=== PATIENT | female | born 1990 | race Two or more races ===

== ENCOUNTER 2022-11-10 23:49 | Inpatient (IN) | payer OTHER ==
[~2022-11-10] VITALS: Ht 157.5 cm; Wt 68.9 kg
--- NOTE | 2022-11-10 23:55 | NUR ---
ALINA FROM HOME FOR EPIGASTRIC PAIN AND N/V UNABLE TO TOLERATE ANY PO SINCE THIS AM. SEEING GI SPECIALIST CURRENTLY. ALSO ADDS SHE HAS HAD MANY GI ISSUES SINCE OF FIRST BABY IN JUNE OF THIS YEAR. PLACED COMFORTABLY IN BED, VITALS CHECKED.
[2022-11-11] MEDS ORDERED: ONDANSETRON HCL/PF 4 MG/2 ML VIAL IVP ONE
--- NOTE | 2022-11-11 00:03 | NUR ---
EKG DONE AT BEDSIDE
--- NOTE | 2022-11-11 00:07 | NUR ---
EKG COMPLETED AT BEDSIDE
--- NOTE | 2022-11-11 00:15 | NUR ---
20GA TO LEFT AC ESTABLISHED, BLOOD WORK COLLECTED, SENT TO LAB
[2022-11-11] MEDS ORDERED: ONDANSETRON HCL/PF 4 MG/2 ML VIAL ONE (00:20)
[2022-11-11 00:43] LABS: BASOPHILS # (AUTO) 0.1 K/uL (0.0-0.2); BASOPHILS % (AUTO) 0.5 % (0.0-2.0); EOSINOPHILS % (AUTO) 0.4 % (0.0-6.0); HEMATOCRIT 41 % (33-45); HEMOGLOBIN 13.5 g/dL (11.5-14.8); LYMPHOCYTES # (AUTO) 1.9 K/uL (0.8-4.8); LYMPHOCYTES % (AUTO) 11.1 % (20.0-44.0); MEAN CORPUSCULAR HGB CONC 33 g/dl (31.0-36.0); MEAN CORPUSCULAR VOLUME 81 fL (82-100); MONOCYTES # (AUTO) 0.8 K/uL (0.1-1.30); MONOCYTES % (AUTO) 4.5 % (2.0-12.0); NEUTROPHILS # (AUTO) 14.5 K/uL (1.8-8.9); NEUTROPHILS % (AUTO) 83.5 % (43.0-81.0); PLATELET COUNT (AUTO) 326 K/uL (150-450); RED BLOOD CELL COUNT(AUTO) 5.03 MIL/uL (4.0-5.2); WHITE BLOOD COUNT (AUTO) 17.4 K/uL (4.3-11.0)
[2022-11-11] MEDS ORDERED: PROCHLORPERAZINE EDISYLATE 10 MG/2 ML VIAL ONE (01:20)
--- NOTE | 2022-11-11 01:20 | NUR ---
U/S TECH AT BEDSIDE
[2022-11-11 01:28] LABS: ALBUMIN 4.2 g/dL (3.4-5.0); BILIRUBIN,DIRECT 0.9 mg/dL (0.0-0.2); BILIRUBIN,TOTAL 2.2 mg/dL (0.2-1.0); CALCIUM, SERUM 9.8 mg/dL (8.5-10.1); POTASSIUM 3.4 mmol/L (3.5-5.1)
[2022-11-11] MEDS ORDERED: PROCHLORPERAZINE EDISYLATE 10 MG/2 ML VIAL IVP ONE (01:30)
--- NOTE | 2022-11-11 01:50 | NUR ---
U/S COMPLETED AT BEDSIDE
[2022-11-11] MEDS ORDERED: LORAZEPAM INJ 2 MG/ML VIAL ONE (02:45)
[2022-11-11] MEDS ORDERED: CIPROFLOXACIN IV RTU 400 MG in PREMIX 1 EA IV SCH (03:00)
[2022-11-11] MEDS ORDERED: IV NS 0.9% 1,000 ML IV PRN (03:00)
[2022-11-11] MEDS ORDERED: LORAZEPAM INJ 2 MG/ML VIAL IV ONE (03:00)
[2022-11-11] MEDS ORDERED: FLAGYL/NS RTU 500 MG/100 ML PIGGYBACK IV ONE (03:00)
[2022-11-11] MEDS ORDERED: METRONIDAZOLE 500MG/ NS 100ML 100 ML IV ONE (03:07)
[2022-11-11] MEDS ORDERED: CIPROFLOXACIN IV RTU 200 ML IV ONE (04:13)
--- NOTE | 2022-11-11 04:15 | NUR ---
DR. PENNINGTON ON THE PHONE W/ DR. CIFUENTES FROM [facility]
--- NOTE | 2022-11-11 04:35 | NUR ---
FAXED COVID RESULTS DEY[facility] NOT TO [facility] AT [phone]
--- NOTE | 2022-11-11 05:18 | NUR ---
SPOKE TO DAYANNA PHILLIPS CM, FAXED OVER [employer] FOR TRANSFER NOTE AT HER REQUEST. PT HAS RECEIVED A BED AT [facility], THEY WILL CALL BACK AFTER NOTE IS RECEIVED TO GIVE MORE ACCEPTANCE INFORMATION.
--- NOTE | 2022-11-11 08:34 | NUR ---
CALLED [facility] WEALTH MANAGEMENT DIRECTOR,HILARY ALAN, WILL CALL BACK 30-60 MINS FOR UPDATE. [phone]
[2022-11-11] MEDS ORDERED: OMEP40CA21 PO (12:11)
--- NOTE | 2022-11-11 12:30 | NUR ---
BED GIVEN 306-1
--- NOTE | 2022-11-11 12:39 | NUR ---
REPORT GIVEN TO DANIEL FOR KHARI
--- NOTE | 2022-11-11 12:54 | NUR ---
PT TAKEN TO MED SURG FLOOR IN STABLE CONDITION.
--- NOTE | 2022-11-11 13:00 | NUR ---
CONSERVATION AGENT NOTE: RECEIVED PT VIA GURNEY FROM ER. PT IS AAOX4. ABLE TO MAKE NEEDS KNOWN. ON RA. O2 SAT 99%NO SOB, NO S/S DISTRESS NOTED. PT ORIENTED TO ROOM AND HOW TO USE CALL LIGHT . IV ACCESS CAT AC. PATENT AND INTACT. FLUSHING WELL. ALL BELONGINGS ACCOUNTED. LUNGS CLEAR UPON AUSCULTATION.BOWEL SOUNDS PRESENT X4 QUADRANTS.SKIN ASSESMENT DONE. WITH NO SKIN BREAKDOWN.VITAL SIGNS RA 99%, BP 105/72, P87, R16,T 97.9, PA 0/10.BED IN LOW AND LOCK POSITION S/R UP X 2, CALL LIGHT WITHIN REACH.
[2022-11-11 13:26] VITALS: BP 105/72
--- NOTE | 2022-11-11 13:30 | NUR ---
MS RN NOTE: DR LUCIANO AT BEDSIDE.
[2022-11-11] MEDS ORDERED: MORPHINE SULFATE INJ 2 MG/ML DISP.SYRIN IV PRN (14:00)
[2022-11-11] MEDS ORDERED: POTASSIUM CHLORIDE 20 MEQ TAB.PRT.SR PO ONE (14:00)
[2022-11-11] MEDS ORDERED: ACETAMINOPHEN 325 MG TABLET PO PRN (14:00)
[2022-11-11] MEDS ORDERED: HYDROCODONE/APAP 5/325MG TABLET PO PRN (14:00)
[2022-11-11] MEDS: PANTOPRAZOLE 40 MG VIAL IV SCH ×2 (14:22→18:16)
[2022-11-11] MEDS: ONDANSETRON HCL/PF 4 MG/2 ML VIAL IV PRN ×2 (14:36→22:09)
[2022-11-11 16:00] VITALS: BP 99/59
--- NOTE | 2022-11-11 18:00 | NUR ---
RN NOTE: DR. SCHAFER AT BEDSIDE
[2022-11-11] MEDS: PIPERACILLIN /TAZOBACTAM 3.375 G in IV D5W 50 ML IV SCH (18:16)
--- NOTE | 2022-11-11 18:25 | NUR ---
RN CLOSING NOTE: PT AAOX3, BF AT BEDSIDE MICHAEL. PT DENIES PAIN OR DISCOMFORT. NO SOB, CALL LIGHT WITHIN REACH. NEEDS ANSWERED PROMPTLY. ASSISTED TO BR NEEDED. BM X2 SMALL, VOIDED X2. CALM AND STABLE AT THIS TIME.
--- NOTE | 2022-11-11 18:28 | NUR ---
MOTHER JANESSA [phone]
[2022-11-11 20:00] VITALS: BP 97/67
--- NOTE | 2022-11-11 20:40 | NUR ---
ANXIETY Patient wanted to sleep, request medication for ANXIETY. Education given to patient, ANXIETY medication and RESTORIL indication and possible side effect, patient verbalized understanding. Patient requesting medication she received last night- Ativan. Notified Dr. Mccauley with new order- Xanax 0.5mg q6h PRN.
[2022-11-11] MEDS ORDERED: ALPRAZOLAM 0.25 MG TABLET PO PRN (21:00)
[2022-11-12] MEDS: PIPERACILLIN /TAZOBACTAM 3.375 G in IV D5W 50 ML IV SCH ×5 (00:43→23:52)
[2022-11-12] MEDS: TEMAZEPAM 7.5 MG CAPSULE PO PRN ×2 (00:51→21:48)
[2022-11-12 05:56] LABS: BASOPHILS # (AUTO) 0.1 K/uL (0.0-0.2); BASOPHILS % (AUTO) 1.1 % (0.0-2.0); EOSINOPHILS % (AUTO) 2.3 % (0.0-6.0); HEMATOCRIT 35 % (33-45); HEMOGLOBIN 12.1 g/dL (11.5-14.8); LYMPHOCYTES # (AUTO) 2.8 K/uL (0.8-4.8); LYMPHOCYTES % (AUTO) 42.3 % (20.0-44.0); MEAN CORPUSCULAR HGB CONC 34 g/dl (31.0-36.0); MEAN CORPUSCULAR VOLUME 81 fL (82-100); MONOCYTES # (AUTO) 0.4 K/uL (0.1-1.30); MONOCYTES % (AUTO) 5.9 % (2.0-12.0); NEUTROPHILS # (AUTO) 3.2 K/uL (1.8-8.9); NEUTROPHILS % (AUTO) 48.4 % (43.0-81.0); PLATELET COUNT (AUTO) 232 K/uL (150-450); RED BLOOD CELL COUNT(AUTO) 4.36 MIL/uL (4.0-5.2); WHITE BLOOD COUNT (AUTO) 6.6 K/uL (4.3-11.0)
[2022-11-12 06:32] LABS: ALBUMIN 3.4 g/dL (3.4-5.0); BILIRUBIN,TOTAL 1.8 mg/dL (0.2-1.0); CREATININE 0.9 mg/dL (0.6-1.3); MAGNESIUM 2.2 mg/dL (1.8-2.4); POTASSIUM 3.9 mmol/L (3.5-5.1); TOTAL PROTEIN, SERUM 6.7 g/dL (6.4-8.2)
[2022-11-12 06:43] LABS: THYROID STIMULATING HORMONE 1.221 uIU/mL (0.358-3.74)
--- NOTE | 2022-11-12 07:25 | NUR ---
END OF SHIFT REPORT Patient in bed, Alert Oriented x4. Oxygen sat high 90's in RA. IV peripheral line left AC intact, on IV abx with no adverse side effect. Patient on Clear liquids diet. Afebrile during the night. Nausea improved with IV Zofran, no emesis. Denies abd pain. Plan for MRCP wo contrast. Patient consented procedure. MRI questionnaire checklist completed. Endorsed care to JUNIOR Thomas.
--- NOTE | 2022-11-12 07:29 | NUR ---
MS RN OPENING NOTE Received pt in bed, awake. A/O x 4, able to make needs known. No c/o pain/discomfort at this time. On room air, tolerating well. IV access in the LAC #20g, sl. Safety measures in place: bed in lowest locked position, side rails up x 2, call light and tray table within easy reach. Will continue to monitor.
[2022-11-12 08:35] VITALS: BP 91/63
[2022-11-12] MEDS: PANTOPRAZOLE 40 MG VIAL IV SCH (08:47)
--- NOTE | 2022-11-12 15:00 | NUR ---
RN NOTE Consent for surgery signed by patient. Instructed patient not to eat and drink after midnight.
[2022-11-12 15:40] VITALS: BP 94/56
--- NOTE | 2022-11-12 18:49 | NUR ---
MS RN CLOSING NOTE Patient resting in bed, with relative at bedside. A/O x 4, able to make needs known. No c/o pain/discomfort at this time. On room air, tolerating well. IV access in the LAC #20g, sl. Safety measures in place: bed in lowest locked position, side rails up x 2, call light and tray table within easy reach. Will endorse mariel to weight shifter.
--- NOTE | 2022-11-12 19:05 | NUR ---
MS RN OPENING NOTE PATIENT IS RESTING IN BED, ALERT AND ORIENTED, AO X 4. SHE IS ON RA, TOLERATED WELL. NO S/S OF DISTRESS OR SOB. PT DENIES OF HAVING PAIN AT THIS MOMENT. IV ACCESS IS AT HER L AC, #20G, SL. FLUSHED WELL WITH NS. IV SITE IS PATENT AND INTACT. SAFETY MEASURES ARE IN PLACED: BED IN LOWEST AND LOCKED POSITION; SIDE RAILS UP X 2; CALL LIGHT AND TABLE ARE WITHIN REACH. WILL CONTINUE MONITORING THE PT AND PROVIDE THE CARE PT NEEDS.
--- NOTE | 2022-11-12 19:39 | NUR ---
MS RN NOTE PT STATED THAT SHE WAS HAVING HEADACHE AND NEEDED MEDICATIONS FOR IT. PRN PO MEDICATION, TYLENOL 650 ML, ADMINISTERED PER MD ORDER.
[2022-11-12 20:00] VITALS: BP 101/64
[2022-11-12] MEDS: ONDANSETRON HCL/PF 4 MG/2 ML VIAL IV PRN (21:48)
--- NOTE | 2022-11-12 21:49 | NUR ---
MS RN NOTE PT REQUESTED FOR SLEEPING PILL. PRN PO MEDICATION, TEMAZEPAM 7.5MG, ADMINISTERED TO THE PT PER MD ORDER.
--- NOTE | 2022-11-12 21:50 | NUR ---
MS RN NOTE PT STATED SHE WAS HAVING NAUSEA. PRN IV MEDICATION, ZOFRAN, ADMINISTERED TO THE PT PER MD ORDER.
[2022-11-13] MEDS: PIPERACILLIN /TAZOBACTAM 3.375 G in IV D5W 50 ML IV SCH ×3 (05:01→18:26)
[2022-11-13 06:18] LABS: BASOPHILS # (AUTO) 0.1 K/uL (0.0-0.2); EOSINOPHILS % (AUTO) 2.3 % (0.0-6.0); HEMATOCRIT 38 % (33-45); HEMOGLOBIN 12.9 g/dL (11.5-14.8); LYMPHOCYTES # (AUTO) 2.5 K/uL (0.8-4.8); LYMPHOCYTES % (AUTO) 34.9 % (20.0-44.0); MEAN CORPUSCULAR HGB CONC 34 g/dl (31.0-36.0); MEAN CORPUSCULAR VOLUME 82 fL (82-100); MONOCYTES # (AUTO) 0.4 K/uL (0.1-1.30); MONOCYTES % (AUTO) 5.7 % (2.0-12.0); NEUTROPHILS % (AUTO) 56.1 % (43.0-81.0); PLATELET COUNT (AUTO) 255 K/uL (150-450); RED BLOOD CELL COUNT(AUTO) 4.67 MIL/uL (4.0-5.2); WHITE BLOOD COUNT (AUTO) 7.1 K/uL (4.3-11.0)
[2022-11-13 06:43] LABS: ALBUMIN 3.6 g/dL (3.4-5.0); BILIRUBIN,TOTAL 1.5 mg/dL (0.2-1.0); CALCIUM, SERUM 9.1 mg/dL (8.5-10.1); CREATININE 0.9 mg/dL (0.6-1.3); POTASSIUM 3.6 mmol/L (3.5-5.1); TOTAL PROTEIN, SERUM 6.9 g/dL (6.4-8.2)
--- NOTE | 2022-11-13 06:50 | NUR ---
MS RN CLOSING NOTE PATIENT IS RESTING IN BED, ALERT AND ORIENTED, AO X 4. SHE IS ON RA, TOLERATED WELL. NO S/S OF DISTRESS OR SOB. PT DENIES OF HAVING PAIN AT THIS MOMENT. IV ACCESS IS AT HER L AC, #20G, SL. FLUSHED WELL WITH NS. IV SITE IS PATENT AND INTACT. SAFETY MEASURES ARE IN PLACED: BED IN LOWEST AND LOCKED POSITION; SIDE RAILS UP X 2; CALL LIGHT AND TABLE ARE WITHIN REACH. WILL ENDORSE NEXT SHIFT NURSE FOR CONTINUING PT CARE.
--- NOTE | 2022-11-13 07:11 | NUR ---
MS RN NOTE PT IS PICKING UP BY OR.
[2022-11-13] MEDS ORDERED: FENTANYL PF 100MCG/2ML AMPUL ONE (07:13)
[2022-11-13] MEDS ORDERED: MIDAZOLAM HCL 2 MG/2ML VIAL ONE (07:13)
[2022-11-13] MEDS ORDERED: BUPIVACAINE 0.5 % PF 150 MG/30 ML VIAL ONE (07:24)
[2022-11-13] MEDS ORDERED: LIDOCAINE 1% INJ 50 ML MDV IJ ONE (07:25)
[2022-11-13] MEDS ORDERED: LIDOCAINE 1%-EPI 1:100,000 20 ML VIAL ONE (07:25)
--- NOTE | 2022-11-13 07:30 | NUR ---
RN OPENING NOTES PATIENT IS AT SURGERY AT THIS TIME
[2022-11-13] MEDS ORDERED: BACITRACIN ZINC OINT PACKET 1 EA PACKET TP ONE (08:47)
[2022-11-13] MEDS: PANTOPRAZOLE 40 MG/PACK PACK PO SCH (09:00)
[2022-11-13] MEDS ORDERED: PANTOPRAZOLE 40 MG VIAL IV SCH (09:00)
[2022-11-13] MEDS ORDERED: HYDROMORPHONE 1 MG/1 ML DISP.SYRIN ONE ×2 (09:06→09:18)
[2022-11-13] MEDS ORDERED: ONDANSETRON HCL/PF 4 MG/2 ML VIAL ONE (09:11)
--- NOTE | 2022-11-13 10:00 | NUR ---
RN NOTES RECEIVED PATIENT FROM SURGERY S/P LAPAROSCOPIC CHOLECESTECTOMY , AWAKE AND VERBALLY RESPONSIVE , V/S TAKEN AND RECORDED . BP 110/74 , P 76 , RR 20 T 98.2, O2 SAT 98% ROOM AIR , NO SOB OR DISTRESS NOTED AND KEPT COMFORTABLE TO BED , SURGICAL SITE NO BLEEDING NOTED AND PATIENT WILL HAVE ICE CHIPS AND TO ADVANCE TOLERATED , WILL CONTINUE TO MONITOR
[2022-11-13] MEDS: CELECOXIB 100 MG CAPSULE PO SCH ×2 (11:09→22:41)
[2022-11-13] MEDS: ACETAMINOPHEN 325 MG TABLET PO SCH ×2 (11:10→19:43)
[2022-11-13] MEDS: GABAPENTIN 100 MG CAPSULE PO SCH ×2 (11:10→19:43)
[2022-11-13] MEDS: ONDANSETRON HCL/PF 4 MG/2 ML VIAL IV PRN ×2 (11:10→16:51)
[2022-11-13 12:00] VITALS: BP 110/74
[2022-11-13 16:00] VITALS: BP 122/83
--- NOTE | 2022-11-13 18:50 | NUR ---
RN CLOSING NOTES PATIENT ON BED AWAKE S/P LAPAROSCOPIC CHOLECESTECTOMY , AWAKE AND VERBALLY RESPONSIVE , V/S TAKEN AND RECORDED . BP 110/74 , P 76 , RR 20 T 98.2, O2 SAT 98% ROOM AIR , NO SOB OR DISTRESS NOTED AND KEPT COMFORTABLE TO BED , SURGICAL SITE NO BLEEDING NOTED AND , NOW ABLE TO TOLERATE CLEAR LIQUID WITH NO ASPIRATIONS NOTED , ALL DUE MEDS GIVEN ORDERED , C/O OF PAIN AND DISCOMFORT AND PATIENT GIVEN PAIN MEDS ORDERED , NAUSEA NOTED AND ZOFRAN GIVEN ORDERED AND WITH HELP . IV ACCESS ON LAC WITH 20 G RUNNING WITH LR @ 100 CC /HR , ENDORSED TO NEXT SHIFT
[2022-11-13] MEDS: IV LR 1000 ML 1,000 ML IV PRN (19:10)
--- NOTE | 2022-11-13 19:10 | NUR ---
MS RN OPENING NOTE PATIENT IS RESTING IN BED, ALERT AND ORIENTED, AO X 4. SHE IS ON RA, TOLERATED WELL. NO S/S OF DISTRESS OR SOB. PT DENIES OF HAVING PAIN AT THIS MOMENT. IV ACCESS IS AT HER L AC, #20G, INFUSING LR @ 100 ML / HR. IV SITE IS PATENT AND INTACT. SAFETY MEASURES ARE IN PLACED: BED IN LOWEST AND LOCKED POSITION; SIDE RAILS UP X 2; CALL LIGHT AND TABLE ARE WITHIN REACH. WILL CONTINUE MONITORING THE PT AND PROVIDE THE CARE PT NEEDS.
[2022-11-13 20:00] VITALS: BP 108/72
[2022-11-13] MEDS: TEMAZEPAM 7.5 MG CAPSULE PO PRN (22:41)
--- NOTE | 2022-11-13 22:42 | NUR ---
MS RN NOTE PT STATED THAT SHE NEEDED SLEEPING PILL FOR HER INSOMNIA. PRN MEDICATION, TEMAZEPAM, ADMINISTERED PER MD ORDER.
[2022-11-14] MEDS: PIPERACILLIN /TAZOBACTAM 3.375 G in IV D5W 50 ML IV SCH ×3 (00:01→12:00)
[2022-11-14] MEDS: GABAPENTIN 100 MG CAPSULE PO SCH ×2 (03:40→12:47)
[2022-11-14] MEDS: ACETAMINOPHEN 325 MG TABLET PO SCH ×2 (03:40→12:48)
[2022-11-14] MEDS: IV LR 1000 ML 1,000 ML IV PRN (05:27)
[2022-11-14 06:57] LABS: BASOPHILS # (AUTO) 0.1 K/uL (0.0-0.2); BASOPHILS % (AUTO) 0.6 % (0.0-2.0); HEMATOCRIT 36 % (33-45); HEMOGLOBIN 12.3 g/dL (11.5-14.8); LYMPHOCYTES # (AUTO) 2.5 K/uL (0.8-4.8); LYMPHOCYTES % (AUTO) 26.6 % (20.0-44.0); MEAN CORPUSCULAR HGB CONC 34 g/dl (31.0-36.0); MEAN CORPUSCULAR VOLUME 82 fL (82-100); MONOCYTES # (AUTO) 0.6 K/uL (0.1-1.30); MONOCYTES % (AUTO) 6.1 % (2.0-12.0); NEUTROPHILS # (AUTO) 6.1 K/uL (1.8-8.9); NEUTROPHILS % (AUTO) 65.7 % (43.0-81.0); PLATELET COUNT (AUTO) 242 K/uL (150-450); RED BLOOD CELL COUNT(AUTO) 4.46 MIL/uL (4.0-5.2); WHITE BLOOD COUNT (AUTO) 9.3 K/uL (4.3-11.0)
[2022-11-14 07:00] VITALS: BP 102/65
--- NOTE | 2022-11-14 07:15 | NUR ---
MS RN CLOSING NOTE PATIENT IS RESTING IN BED, ALERT AND ORIENTED, AO X 4. SHE IS ON RA, TOLERATED WELL. NO S/S OF DISTRESS OR SOB. PT DENIES OF HAVING PAIN AT THIS MOMENT. IV ACCESS IS AT HER L AC, #20G, INFUSING LR @100 ML / HR. IV SITE IS PATENT AND INTACT. SAFETY MEASURES ARE IN PLACED: BED IN LOWEST AND LOCKED POSITION; SIDE RAILS UP X 2; CALL LIGHT AND TABLE ARE WITHIN REACH. WILL ENDORSE NEXT SHIFT NURSE FOR CONTINUING PT CARE.
[2022-11-14 07:22] LABS: ALBUMIN 3.2 g/dL (3.4-5.0); CALCIUM, SERUM 9.1 mg/dL (8.5-10.1); CREATININE 0.8 mg/dL (0.6-1.3); MAGNESIUM 2.2 mg/dL (1.8-2.4); PHOSPHORUS 3.9 mg/dL (2.5-4.9); POTASSIUM 3.7 mmol/L (3.5-5.1); TOTAL PROTEIN, SERUM 6.4 g/dL (6.4-8.2)
--- NOTE | 2022-11-14 07:50 | NUR ---
MS RN OPENING NOTE PATIENT IS RESTING IN BED, ALERT AND ORIENTED, AO X 4. SHE IS ON RA, TOLERATED WELL. NO S/S OF DISTRESS OR SOB. PT DENIES OF HAVING PAIN AT THIS MOMENT. IV ACCESS IS AT HER L AC, #20G, SL. FLUSHED WELL WITH NS. IV SITE IS PATENT AND INTACT. SAFETY MEASURES ARE IN PLACED: BED IN LOWEST AND LOCKED POSITION; SIDE RAILS UP X 2; CALL LIGHT AND TABLE ARE WITHIN REACH. WILL CONTINUE MONITOR AND CARE FOR THE PT PER MD 'S POC.
[2022-11-14] MEDS ORDERED: ACET-907 PO (08:47)
[2022-11-14] MEDS ORDERED: ONDA4TAB5 PO (08:47)
[2022-11-14] MEDS ORDERED: AMOX-427 PO (08:47)
[2022-11-14] MEDS ORDERED: MECL-182 PO (08:47)
[2022-11-14] MEDS: MECLIZINE HCL 25 MG TABLET PO SCH ×2 (09:32→13:49)
[2022-11-14] MEDS: PANTOPRAZOLE 40 MG/PACK PACK PO SCH (09:32)
[2022-11-14] MEDS: CELECOXIB 100 MG CAPSULE PO SCH (12:47)
--- NOTE | 2022-11-14 14:43 | NUR ---
MS OCEAN FISHING GUIDE TO HOME NOTE (DAY SHIFT) Patient tolerated the removal of the # 20 gauge PIV catheter fully intact from her left arm antecubital space without any signs of complications of IV therapy. Patient demonstrated understanding of her home care discharge instructions using the teach back method in her own words. Patient departed the [address], walking with steady gait to private car with her boy friend, Babak, at 14:40 hours, bound for her home.
[2022-11-14] MEDS ORDERED: PIPERACILLIN /TAZOBACTAM 3.375 G in IV D5W 100 ML IV SCH (21:00)
== END 2022-11-14 14:40 | disposition home or self-care (01) | DRG 263 ==
LOC: ER 23:52 → MED 11-11 12:36
PROVIDERS: ADMIT Internal Medicine; ATTEND Internal Medicine
PROC: BF36ZZZ Magnetic Resonance Imaging (MRI) of Liver and Spleen (ICD-10-PCS; 2022-11-12)
PROC: BF37ZZZ Magnetic Resonance Imaging (MRI) of Pancreas (ICD-10-PCS; 2022-11-12)
PROC: 0FT44ZZ Resection of Gallbladder, Percutaneous Endoscopic Approach (ICD-10-PCS; principal; 2022-11-13)
PROC: 0DNU4ZZ Release Omentum, Percutaneous Endoscopic Approach (ICD-10-PCS; 2022-11-13)
DX: K80.10 Calculus of gallbladder with chronic cholecystitis without obstruction (principal); K21.9 Gastro-esophageal reflux disease without esophagitis; R74.01 Elevation of levels of liver transaminase levels; K66.0 Peritoneal adhesions (postprocedural) (postinfection); R42 Dizziness and giddiness; Z20.822 Contact with and (suspected) exposure to COVID-19; F12.90 Cannabis use, unspecified, uncomplicated
CPT/HCPCS: 36415; 74181-TC; 76705-TC; 80048-TC; 80053-TC; 80076-TC; 83690-TC; 83735-TC; 84100-TC; 84443-TC; 84703-TC; 85025-TC; 87081-TC; 88304-TC; A4216; A4223; A6209; C9113; C9803; G0378; J0744; J0780; J1100; J1170; J2060; J2250; J2270; J2405; J2543; J2704; J3010; J3490; J7030; J7040; J7050; J7060; J7120; J8597